=== PATIENT | male | born 1945 | race Caucasian/White ===

== ENCOUNTER 2017-01-12 14:47 | Observation (INO) | payer OTHER ==
[~2017-01-12] VITALS: Ht 177.8 cm; Wt 66.0 kg
[2017-01-12 15:12] VITALS: BP 140/81; PULSE 64; RESP 24; TEMP 98.3; O2SAT 99
[2017-01-12] MEDS ORDERED: NITROGLYCERIN 0.4 MG SL 25 TABS/BTL SL ONE (15:15)
[2017-01-12] MEDS ORDERED: MORPHINE SULFATE 4 MG/ML INJ IV PUSH ONE (15:15)
[2017-01-12] MEDS ORDERED: SODIUM CHLORIDE 0.9% FLUSH 10 ML FLUSH IVF PRN (15:15)
[2017-01-12] MEDS ORDERED: ONDANSETRON HCL 4 MG/2 ML VIAL IV PUSH ONE (15:15)
[2017-01-12] MEDS ORDERED: GABA600T PO (15:30)
[2017-01-12] MEDS ORDERED: RANI150T PO (15:30)
[2017-01-12] MEDS ORDERED: TRAZ100T10 PO (15:30)
[2017-01-12] MEDS ORDERED: PROC10TA PO (15:30)
[2017-01-12] MEDS ORDERED: SILD20TA11 PO (15:30)
[2017-01-12] MEDS ORDERED: MAGICADU2 SWISH-SWAL (15:30)
[2017-01-12] MEDS ORDERED: ONDA8TAB7 PO (15:30)
[2017-01-12] MEDS ORDERED: METO25TA3 PO (15:30)
[2017-01-12] MEDS ORDERED: TAMS0.4C4 PO (15:30)
[2017-01-12] MEDS ORDERED: SODI0.9A EACH NARE (15:30)
[2017-01-12] MEDS ORDERED: SPIRCAP INH (15:30)
[2017-01-12] MEDS ORDERED: LEVO200T4 PO (15:30)
[2017-01-12] MEDS ORDERED: SERT-129 PO (15:30)
[2017-01-12 15:49] LABS: AUTOMATED NEUTROPHIL # 8.9 TH/MM3 (1.8-7.7); BASOPHIL % 0.2 % (0.0-2.0); EOSINOPHIL # 0.2 TH/MM3 (0-0.4); EOSINOPHIL % 1.6 % (0.0-4.0); HEMATOCRIT 40.2 % (39.0-51.0); HEMO FLAGS DIFF FINAL; LYMPH % 5.7 % (9.0-44.0); LYMPHOCYTE # 0.6 TH/MM3 (1.0-4.8); MEAN CELL VOLUME 96.8 FL (80.0-100.0); MEAN CORPUSCULAR HEMOGLOBIN 32.7 PG (27.0-34.0); MEAN CORPUSCULAR HGB CONC 33.8 % (32.0-36.0); MONO % 5.4 % (0.0-8.0); NEUT % 87.1 % (16.0-70.0); PLATELET COUNT 178 TH/MM3 (150-450); RED BLOOD COUNT 4.15 MIL/MM3 (4.50-5.90); RED CELL DISTRIBUTION WIDTH 14.4 % (11.6-17.2); WHITE BLOOD COUNT 10.3 TH/MM3 (4.0-11.0)
[2017-01-12 15:50] VITALS: BP 118/66; PULSE 66; RESP 20; O2SAT 95
[2017-01-12 15:57] LABS: APTT (PATIENT) 26.4 SEC (24.3-30.1); PROTHROMBIN TIME - PATIENT 11.4 SEC (9.8-11.6)
[2017-01-12 16:02] LABS: ALT (GPT) 21 U/L (12-78); ANION GAP 7 MEQ/L (5-15); AST (GOT) 20 U/L (15-37); BICARBONATE 27.9 MEQ/L (21.0-32.0); BLOOD UREA NITROGEN 25 MG/DL (7-18); CHLORIDE 100 MEQ/L (98-107); GLOMERULAR FILTRATION RATE 70 ML/MIN (>89); MAGNESIUM 1.8 MG/DL (1.5-2.5); POTASSIUM 4.1 MEQ/L (3.5-5.1); SODIUM (NA) 135 MEQ/L (136-145)
[2017-01-12 16:06] LABS: ALKALINE PHOSPHATASE 109 U/L (45-117); TOTAL BILIRUBIN ADULT 0.5 MG/DL (0.2-1.0)
[2017-01-12 16:11] LABS: CREATINE KINASE 72 U/L (39-308)
--- NOTE | 2017-01-12 16:20 | PD ---
HPI Chief Complaint: Chest Pain Time Seen by Provider: 15:04 Travel History International Travel<30 days: No Contact w/Intl Traveler<30days: No Traveled to known affect area: No History of Present Illness HPI 71-year-old male that presents to the ED for evaluation of chest pain. Patient was seen at the OR for the chest pain and he was told to come here. Per patient in due thousand 11 he had an TN and had the same symptoms. Per patient the chest pain is not really painful but more like indigestion sensation. Per patient he goes to his throat. The patient is exactly the same as before. He has a history of lung cancer as well as ACS. High cholesterol and hypertension. He continues to smoke. He apparently cancer free. [place] through [place]. He denies any fevers chills or sweats. No trauma to the chest. Chest pain started 4 hours ago. Denies any headache or head injury. No numbness, tilling, weakness. No radiation of the pain. No back pain. No abdominal discomfort. No urinary or bowel movement issues. Pain per patient is 7 out of 10. He was given aspirin and nitroglycerin by ambulance with minimal results. 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) Cardiac Catheterization: Yes Cardiovascular Problems: Yes (TN with stent-CIRCUMFLEX OF THE LCA,) COPD: Yes Gastrointestinal Disorders: Yes (COLONIC POLYPS/BARRETTS ESOPHAGUS) Genitourinary: Yes (BPH W/O OBSTRUCTION) Hypertension: Yes Medical other: Yes (RESTLESS LEGS ) Respiratory: Yes (lung ca) Myocardial Infarction: Yes Thyroid Disease: Yes Past Surgical History Appendectomy: Yes Coronary Stent: Yes Social History Alcohol Use: Yes Tobacco Use: Yes Substance Use: Yes Allergies-Medications (Allergen,Severity, Reaction): Coded Allergies: No Known Allergies (Unverified , 01/12/17) Reported Meds & Prescriptions Reported Meds & Active Scripts Active Reported Sildenafil 20 Mg Tab 100 Mg PO HS Tamsulosin (Tamsulosin HCl) 0.4 Mg Cap 0.4 Mg PO HS Sertraline (Sertraline HCl) 100 Mg Tab 200 Mg PO DAILY Metoprolol Tartrate 25 Mg Tab 12.5 Mg PO Q12HR Prochlorperazine Maleate 10 Mg Tab 10 Mg PO Q6H PRN Ondansetron (Ondansetron HCl) 8 Mg Tab 8 Mg PO Q8HR Spiriva Handihaler (Tiotropium Inh) 18 Mcg Cap 18 Mcg INH DAILY 1 capsule = 18 mcg Nasal Mist Inh (Sodium Chloride) 0.9 % Aer 1 [place] EACH NARE BID PRN Magic Mouthwash Adult Liq (Multi-Ingredient Mouthwash/Gargle) 120 Ml Susp 10 Ml SWISH-SWAL ACHS Each 5mL contains: Nystatin 200,000units, Diphenhydramine 4.25mg, Viscous Lidocaine 10mg, Barakat syrup 0.8 mL Levothyroxine (Levothyroxine Sodium) 200 Mcg Tab 200 Mcg PO DAILY Ranitidine (Ranitidine HCl) 150 Mg Tab 150 Mg PO BID Trazodone (Trazodone HCl) 100 Mg Tablet 100 Mg PO HS Gabapentin 600 Mg Tab 600 Mg PO BID Review of Systems Except as stated in HPI: all other systems reviewed are Neg Physical Exam Narrative GENERAL: SKIN: Warm and dry. HEAD: Atraumatic. Normocephalic. EYES: Pupils equal and round. No scleral icterus. No injection or drainage. ENT: No nasal bleeding or discharge. Mucous membranes pink and moist. Tongue is midline. No uvula deviation. NECK: Trachea midline. No JVD. CARDIOVASCULAR: Regular rate and rhythm. No murmurs, S3, S4. Patient has a chronic sternal deformity. RESPIRATORY: No accessory muscle use. Clear to auscultation. Breath sounds equal bilaterally. GASTROINTESTINAL: Abdomen soft, non-tender, nondistended. Hepatic and splenic margins not palpable. MUSCULOSKELETAL: Extremities without clubbing, cyanosis, or edema. No obvious deformities. Full range of motion of the upper and lower extremities bilaterally. 2+ pulses bilaterally. NEUROLOGICAL: Awake and alert. No obvious cranial nerve deficits. Motor grossly within normal limits. Five out of 5 muscle strength in the arms and legs. Normal speech. PSYCHIATRIC: Appropriate mood and affect; insight and judgment normal. Data Data Last Documented VS Vital Signs Date Time Temp Pulse Resp B/P (MAP) Pulse Ox O2 Delivery O2 Flow Rate FiO2 01/12/17 16:13 98 Room Air 01/12/17 15:50 66 20 118/66 (83) 01/12/17 15:12 98.3 Orders Orders Electrocardiogram (01/12/17 15:12) Ckmb (Isoenzyme) Profile (01/12/17 15:12) Complete Blood Count With Diff (01/12/17 15:12) Comprehensive Metabolic Panel (01/12/17 15:12) D-Dimer (01/12/17 15:12) Magnesium (Mg) (01/12/17 15:12) Prothrombin Time / Inr (Pt) (01/12/17 15:12) Act Partial Throm Time (Ptt) (01/12/17 15:12) Troponin I (01/12/17 15:12) Lipase (01/12/17 15:12) Chest, Single Ap (01/12/17 15:12) Ecg Monitoring (01/12/17 15:12) Bilateral Bp Monitoring (01/12/17 15:12) Iv Access Insert/Monitor (01/12/17 15:12) Oximetry (01/12/17 15:12) Oxygen Administration (01/12/17 15:12) Sodium Chloride 0.9% Flush (Ns Flush) (01/12/17 15:15) Nitroglycerin Sl (Nitrostat Sl) (01/12/17 15:15) Morphine Inj (Morphine Inj) (01/12/17 15:15) Ondansetron Inj (Zofran Inj) (01/12/17 15:15) Labs Laboratory Tests Test 01/12/17 15:33 White Blood Count 10.3 TH/MM3 Red Blood Count 4.15 MIL/MM3 Hemoglobin 13.6 GM/DL Hematocrit 40.2 % Mean Corpuscular Volume 96.8 FL Mean Corpuscular Hemoglobin 32.7 PG Mean Corpuscular Hemoglobin Concent 33.8 % Red Cell Distribution Width 14.4 % Platelet Count 178 TH/MM3 Mean Platelet Volume 7.6 FL Neutrophils (%) (Auto) 87.1 % Lymphocytes (%) (Auto) 5.7 % Monocytes (%) (Auto) 5.4 % Eosinophils (%) (Auto) 1.6 % Basophils (%) (Auto) 0.2 % Neutrophils # (Auto) 8.9 TH/MM3 Lymphocytes # (Auto) 0.6 TH/MM3 Monocytes # (Auto) 0.6 TH/MM3 Eosinophils # (Auto) 0.2 TH/MM3 Basophils # (Auto) 0.0 TH/MM3 CBC Comment DIFF FINAL Differential Comment Prothrombin Time 11.4 SEC Prothromb Time International Ratio 1.0 RATIO Activated Partial Thromboplast Time 26.4 SEC D-Dimer Quantitative (PE/DVT) 0.35 MG/L FEU Blood Urea Nitrogen 25 MG/DL Creatinine 1.04 MG/DL Random Glucose 97 MG/DL Total Protein 6.8 GM/DL Albumin 3.7 GM/DL Calcium Level 9.2 MG/DL Magnesium Level 1.8 MG/DL Alkaline Phosphatase 109 U/L Aspartate Amino Transf (AST/SGOT) 20 U/L Alanine Aminotransferase (ALT/SGPT) 21 U/L Total Bilirubin 0.5 MG/DL Sodium Level 135 MEQ/L Potassium Level 4.1 MEQ/L Chloride Level 100 MEQ/L Carbon Dioxide Level 27.9 MEQ/L Anion Gap 7 MEQ/L Estimat Glomerular Filtration Rate 70 ML/MIN Total Creatine Kinase 72 U/L Troponin I LESS THAN 0.02 NG/ML Lipase 139 U/L MDM Medical Decision Making Medical Screen Exam Complete: Yes Emergency Medical Condition: Yes Medical Record Reviewed: Yes Interpretation(s) CBC & BMP Diagram 01/12/17 15:33 Total Protein 6.8, Albumin 3.7, Calcium Level 9.2, Magnesium Level 1.8, Alkaline Phosphatase 109, Aspartate Amino Transf (AST/SGOT) 20, Alanine Aminotransferase (ALT/SGPT) 21, Total Bilirubin 0.5 D-dimer negative. EKG shows sinus rhythm with no sign of ischemia or arrhythmia read by me and attending. Troponin and CK-MB negative. CXR shows abnormalities, consider CT scan per radiologist. Differential Diagnosis Chest pain versus atypical chest pain versus ACS versus PE versus NSTEMI Narrative Course 71-year-old male that presents to the ED for evaluation of chest pain. Patient was properly examined and was found to have signs and symptoms concerning for ACS. Labs and imaging were done. Labs and imaging were essentially negative at this time. He was given nitroglycerin with some relief. Patient was given aspirin. Patient does have risk factors for ACS including smoking, previous her history as well as hypertension and high cholesterol. Chest x-ray did show what appears to be abnormality and possible mass. CT was recommended and CT was done. CT did show what appears to be possible masses with possible lymphadenopathy. This was discussed with my attending who recommends the patient still be admitted to chest pain center for chest pain rule out. Because of this a do recommend admission for the chest pain center. 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 Case discussed with my attending Dr Ashraf who agrees to admission. This was discussed with patient and family who agree with this. Patient admitted to chest pain center by me. Dr Deshpande declined admission and thus [facility] Dr spangler was called who agreed to admission for chest pain r/o. Procedures EKG Prior to Arrival: Yes Diagnosis Primary Impression: Chest pain in adult Additional Impression: Lung mass Admitting Information Admitting Physician Requests: Observation Charles Rosa Jan 12, 2017 16:20
--- NOTE | 2017-01-12 16:21 | RADRPT ---
EXAM DATE/TIME: 01/12/2017 15:48 [facility] COMPARISON: No previous studies available for comparison. INDICATIONS : Mid chest pain today. MEDICAL HISTORY : Carcinoma, lung. Radiation. COPD. SURGICAL HISTORY : Coronary artery stent. ENCOUNTER: Initial ACUITY: 1 day PAIN SCORE: 7/10 LOCATION: Bilateral chest FINDINGS: Portable AP view of the chest demonstrates a normal-sized cardiac silhouette with calcification of th e aorta. There is abnormal asymmetric opacity at the right lung apex and medial right upper lobe. A p ortion appears to have air bronchograms. No pleural effusion or pneumothorax is identified. The bones and soft tissues demonstrate no acute finding. CONCLUSION: Abnormal airspace opacity/consolidation the right upper lobe and asymmetric right apical opacity. 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 Cameron Haq MD on January 12, 2017 at 16:18 Board Certified Radiologist. This report was verified electronically.
[2017-01-12] MEDS ORDERED: IOHEXOL 350 MG/ML 10 ML VIAL (for RAD DIAG) IVCONTRAST ONE (16:24)
[2017-01-12 16:32] VITALS: BP 107/61; PULSE 76; RESP 20; O2SAT 98
--- NOTE | 2017-01-12 17:18 | RADRPT ---
EXAM DATE/TIME: 01/12/2017 16:39 [facility] COMPARISON: No previous studies available for comparison. INDICATIONS : Bilateral chest pains, mass. IV CONTRAST: 80 cc Omnipaque 350 (iohexol) IV RADIATION DOSE: 5.10 CTDIvol (mGy) MEDICAL HISTORY : Cardiovascular disease. Carcinoma, lung. SURGICAL HISTORY : Appendectomy. ENCOUNTER: Initial ACUITY: 1 day PAIN SCALE: 4/10 LOCATION: Bilateral chest TECHNIQUE: Volumetric scanning of the chest was performed. Using automated exposure control and adjustment of t he mA and/or kV according to patient size, radiation dose was kept as low as reasonably achievable to obtain optimal diagnostic quality images. DICOM format image data is available electronically for review and comparison. Follow-up recommendations for detected pulmonary nodules are based at a minimum on nodule size and pa tient risk factors according to Fleischner Society Guidelines. FINDINGS: LUNGS: Wedge shaped airspace consolidation in the posterior right upper lobe and superior segment of the rig ht lower lobe with adjacent linear opacities are extending to the region of soft tissue fullness in t he right hilum. Right hilar soft tissue measures approximately 3.0 x 2.1 cm. Small subpleural nodule measuring 8 mm in the posterior right lower lobe. Peripheral subpleural airspace disease slightly mor e laterally and anteriorly in the right lower lobe. Mild bilateral opacities in the left lung base. 6 mm groundglass nodule in the left upper lobe. Additional more ill-defined focal groundglass peripher al subpleural nodular opacities in the left upper lobe measuring less than 4 mm. Right apical scarrin g. PLEURA: There is no pleural thickening or pleural effusion. MEDIASTINUM: Coronary artery calcifications. Heart is otherwise unremarkable without significant pericardial effus ion. Central pulmonary arteries are patent. AXILLAE: Within normal limits. No lymphadenopathy. SKELETAL: Gen. spondylosis of the thoracic spine. No definite abnormal lytic or blastic bony lesions. MISCELLANEOUS: The visualized upper abdominal organs demonstrate no acute abnormality. CONCLUSION: 1. No definitive CT findings to explain patient's acute chest pain. 2. Right hilar soft tissue mass measuring 3.0 x 2.1 cm with apparent posttreatment changes in the rig ht lung. 3. Multiple scattered pulmonary nodules, primarily in the left upper lobe measuring up to 6 mm. Findi ngs are concerning for possible metastatic disease. Comparisons with prior examinations would be bene ficial in further evaluation. Alternatively, followup examination may be performed in 3 months to doc ument stability. 4. Coronary artery calcifications. 5. Central pulmonary arteries are patent. Chun Velasquez MD on January 12, 2017 at 17:08 Board Certified Radiologist. This report was verified electronically.
[2017-01-12] MEDS ORDERED: ONDANSETRON HCL 4 MG/2 ML VIAL IV PUSH PRN (17:30)
[2017-01-12] MEDS ORDERED: MORPHINE SULFATE 4 MG/ML INJ IV PUSH PRN (17:30)
[2017-01-12] MEDS ORDERED: SODIUM CHLORIDE 0.9% FLUSH 10 ML FLUSH IV FLUSH PRN ×2 (17:30→20:30)
[2017-01-12] MEDS ORDERED: ACETAMINOPHEN 500 MG CPLT PO PRN (17:30)
[2017-01-12] MEDS ORDERED: ACETAMINOPHEN/HYDROcodone 325 MG/7.5 MG TAB PO PRN (17:30)
--- NOTE | 2017-01-12 19:36 | EKG ---
Date Performed: 01/12/2017 Time Performed: 15:57:24 PTAGE: 71 years EKG: Sinus rhythm NORMAL ECG NO PREVIOUS TRACING DOCTOR: Antonio Weldon Interpretating Date/Time 01/12/2017 19:34:35
[2017-01-12 20:04] LABS: CREATINE KINASE 62 U/L (39-308)
[2017-01-12] MEDS ORDERED: NALOXONE HCL 0.4 MG/ML AMP IV PUSH PRN (20:30)
--- NOTE | 2017-01-12 20:35 | EKG ---
Date Performed: 01/12/2017 Time Performed: 18:47:54 PTAGE: 71 years EKG: Sinus rhythm WITH SHORT NM INTERVAL WITH OCCASIONAL VENTRICULAR PREMATURE COMPLEXES BORDERLINE ECG Compared to pr ior electrocardiogram, Premature ventricular contractions are now present PREVIOUS TRACING : 01/12/2017 15.57 DOCTOR: Antonio Weldon Interpretating Date/Time 01/12/2017 20:33:37
[2017-01-12 20:55] VITALS: BP 132/69; PULSE 75; RESP 19; TEMP 98; O2SAT 95
[2017-01-12] MEDS ORDERED: SODIUM CHLORIDE 0.9% FLUSH 10 ML FLUSH IV FLUSH SCH (21:00)
[2017-01-12] MEDS: SODIUM CHLORIDE 0.9% FLUSH 10 ML FLUSH IV FLUSH SCH (21:00)
[2017-01-12 22:39] VITALS: BP 114/63; PULSE 81; RESP 18; TEMP 98.2; O2SAT 94
[2017-01-13] VITALS (11 sets, daily range): BP systolic 109–140; BP diastolic 63–68; PULSE 60–71; RESP 18; TEMP 98–98.3; O2SAT 93–96
[2017-01-13 01:14] LABS: CREATINE KINASE 61 U/L (39-308)
--- NOTE | 2017-01-13 01:42 | HHI.HP ---
[facility] Admission Diagnosis chest pain, r/o ACS Diagnoses: Chief Complaint: chest pain Travel History International Travel<30 Days: No Contact w/Intl Traveler <30 Da: No Traveled to Known Affected Are: No History of Present Illness Written by EMEKA Rose acting as scribe for [Marline] on 01/13/17 at 01: 35. 71 y/o male with a history of lung cancer (last chemo 6 months ago), hypothyroid , depression,and COPD presented to the ED with complaints of chest pain. Patient states the chest pain began yesterday morning while he was sitting down sorting his medications. He states it is mid sternal chest pain that radiated up to neck, he states it felt like indigestion and it felt similar to his [place] in 2000. Denies any nausea or diaphoresis. He states he did have Diarrhea for 2 weeks that ended about a 1 week ago, and he has had darker brown stools more than normal, denies any red colored or black stools. 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 Oncologist is in [place] Review of Systems Except as stated in HPI: all other systems reviewed are Neg Past Family Social History Past Medical History [place] 2000 with stent placement Lung cancer with chemo and radiation, last chemo 6 months ago Hypothyroid COPD Depression Past Surgical History 2000 and 2014 cardiac stent placement Reported Medications Reported Meds & Active Scripts Active Reported Sildenafil 20 Mg Tab 100 Mg PO HS Tamsulosin (Tamsulosin HCl) 0.4 Mg Cap 0.4 Mg PO HS Sertraline (Sertraline HCl) 100 Mg Tab 200 Mg PO DAILY Metoprolol Tartrate 25 Mg Tab 12.5 Mg PO Q12HR Prochlorperazine Maleate 10 Mg Tab 10 Mg PO Q6H PRN Ondansetron (Ondansetron HCl) 8 Mg Tab 8 Mg PO Q8HR Spiriva Handihaler (Tiotropium Inh) 18 Mcg Cap 18 Mcg INH DAILY 1 capsule = 18 mcg Nasal Mist Inh (Sodium Chloride) 0.9 % Aer 1 [place] EACH NARE BID PRN Magic Mouthwash Adult Liq (Multi-Ingredient Mouthwash/Gargle) 120 Ml Susp 10 Ml SWISH-SWAL ACHS Each 5mL contains: Nystatin 200,000units, Diphenhydramine 4.25mg, Viscous Lidocaine 10mg, Barakat syrup 0.8 mL Levothyroxine (Levothyroxine Sodium) 200 Mcg Tab 200 Mcg PO DAILY Ranitidine (Ranitidine HCl) 150 Mg Tab 150 Mg PO BID Trazodone (Trazodone HCl) 100 Mg Tablet 100 Mg PO HS Gabapentin 600 Mg Tab 600 Mg PO BID Allergies: Coded Allergies: No Known Allergies (Unverified , 01/12/17) Active Ordered Medications Current Medications Medications (Trade) Dose Ordered Sig/Brayan Route Start Time Stop Time Status Last Admin (Tylenol) 500 mg Q4H PRN PO 01/12/17 17:30 (Cascade 7.5-325 Mg) 1 tab Q4H PRN PO 01/12/17 17:30 (Morphine Inj) 2 mg Q4H PRN IV PUSH 01/12/17 17:30 (Zofran Inj) 4 mg Q6H PRN IV PUSH 01/12/17 17:30 (NS Flush) 2 ml UNSCH PRN IV FLUSH 01/12/17 20:30 (NS Flush) 2 ml BID IV FLUSH 01/12/17 21:00 (Narcan Inj) 0.4 mg UNSCH PRN IV PUSH 01/12/17 20:30 Family History Mom and Dad: Heart disease Social History Tobacco use: 1/2 PPD for 60 years Alcohol use: Socially Illicit drug use: Denies Lives with his girlfriend and is still driving Physical Exam Vital Signs Vital Signs Date Time Temp Pulse Resp B/P (MAP) Pulse Ox O2 Delivery O2 Flow Rate FiO2 01/12/17 22:39 98.2 81 18 114/63 (80) 94 01/12/17 20:55 98.0 75 19 132/69 (90) 95 01/12/17 16:32 76 20 107/61 (76) 98 Room Air 01/12/17 16:13 98 Room Air 01/12/17 15:50 66 20 118/66 (83) 95 Room Air 01/12/17 15:12 98.3 64 24 140/81 (100) 99 Room Air Physical Exam GENERAL: This is a well-nourished, well-developed patient, in no apparent distress. SKIN: No rashes, ecchymoses or lesions. Cool and dry. HEAD: Atraumatic. Normocephalic. EYES: Pupils equal round and reactive. ENT: Nose without bleeding, purulent drainage or septal hematoma. Airway patent. NECK: Trachea midline. No JVD or lymphadenopathy. CARDIOVASCULAR: Regular rate and rhythm without murmurs, gallops, or rubs. RESPIRATORY: Clear to auscultation. Breath sounds equal bilaterally. No wheezes , rales, or rhonchi. GASTROINTESTINAL: Abdomen soft, non-tender, nondistended. MUSCULOSKELETAL: Extremities without clubbing, cyanosis, or edema.No calf tenderness. NEUROLOGICAL: Awake and alert. Motor and sensory grossly within normal limits. Normal speech. Laboratory Laboratory Tests Test 01/12/17 15:33 01/12/17 18:50 01/13/17 00:42 White Blood Count 10.3 Red Blood Count 4.15 Hemoglobin 13.6 Hematocrit 40.2 Mean Corpuscular Volume 96.8 Mean Corpuscular Hemoglobin 32.7 Mean Corpuscular Hemoglobin Concent 33.8 Red Cell Distribution Width 14.4 Platelet Count 178 Mean Platelet Volume 7.6 Neutrophils (%) (Auto) 87.1 Lymphocytes (%) (Auto) 5.7 Monocytes (%) (Auto) 5.4 Eosinophils (%) (Auto) 1.6 Basophils (%) (Auto) 0.2 Neutrophils # (Auto) 8.9 Lymphocytes # (Auto) 0.6 Monocytes # (Auto) 0.6 Eosinophils # (Auto) 0.2 Basophils # (Auto) 0.0 CBC Comment DIFF FINAL Differential Comment Prothrombin Time 11.4 Prothromb Time International Ratio 1.0 Activated Partial Thromboplast Time 26.4 D-Dimer Quantitative (PE/DVT) 0.35 Blood Urea Nitrogen 25 Creatinine 1.04 Random Glucose 97 Total Protein 6.8 Albumin 3.7 Calcium Level 9.2 Magnesium Level 1.8 Alkaline Phosphatase 109 Aspartate Amino Transf (AST/SGOT) 20 Alanine Aminotransferase (ALT/SGPT) 21 Total Bilirubin 0.5 Sodium Level 135 Potassium Level 4.1 Chloride Level 100 Carbon Dioxide Level 27.9 Anion Gap 7 Estimat Glomerular Filtration Rate 70 Total Creatine Kinase 72 62 61 Troponin I LESS THAN 0.02 LESS THAN 0.02 LESS THAN 0.02 Lipase 139 Result Diagram: 01/12/17 1533 01/12/17 1533 Imaging Last Impressions Chest X-Ray 01/12/17 1512 Signed Impressions: Service Date/Time: Thursday, January 12, 2017 15:48 - CONCLUSION: Abnormal airspace opacity/consolidation the right upper lobe and asymmetric right apical opacity. Consider further evaluation with chest CT with IV contrast. Cameron Haq MD Chest CT 01/12/17 0000 Signed Impressions: Service Date/Time: Thursday, January 12, 2017 16:39 - CONCLUSION: 1. No definitive CT findings to explain patient's acute chest pain. 2. Right hilar soft tissue mass measuring 3.0 x 2.1 cm with apparent posttreatment changes in the right lung. 3. Multiple scattered pulmonary nodules, primarily in the left upper lobe measuring up to 6 mm. Findings are concerning for possible metastatic disease. Comparisons with prior examinations would be beneficial in further evaluation. Alternatively, followup examination may be performed in 3 months to document stability. 4. Coronary artery calcifications. 5. Central pulmonary arteries are patent. Chun Velasquez MD Caparnulfo VTE Risk Assessment Caprini VTE Risk Assessment: Mod/High Risk (score >= 2) Caprini Risk Assessment Model Point Value = 1 Point Value = 2 Point Value = 3 Point Value = 5 Age 41-60 Minor surgery BMI > 25 kg/m2 Swollen legs Varicose veins or History of unexplained or recurrent spontaneous Oral contraceptives or hormone replacement Sepsis (< 1 month) Serious lung disease, including pneumonia (< 1 month) Abnormal pulmonary function Acute myocardial infarction Congestive heart failure (< 1 month) History of inflammatory bowel disease Medical patient at bed rest Age 61-74 Arthroscopic surgery Major open surgery (> 45 min) Laparoscopic surgery (> 45 min) Malignancy Confined to bed (> 72 hours) Immobilizing plaster cast Central venous access Age >= 75 History of VTE Family history of VTE Factor V Leiden Prothrombin [id number] Lupus anticoagulant Anticardiolipin antibodies Elevated serum homocysteine Heparin-induced thrombocytopenia Other congenital or acquired thrombophilia Stroke (< 1 month) Elective arthroplasty Hip, pelvis, or leg fracture Acute spinal cord injury (< 1 month) Prophylaxis Regimen Total Risk Factor Score Risk Level Prophylaxis Regimen 0-1 Low Early ambulation 2 Moderate Order ONE of the following: *Sequential Compression Device (SCD) *Heparin 5000 units SQ BID 3-4 Higher Order ONE of the following medications: *Heparin 5000 units SQ TID *Enoxaparin/Lovenox 40 mg SQ daily (WT < 150 kg, CrCl > 30 mL/min) *Enoxaparin/Lovenox 30 mg SQ daily (WT < 150 kg, CrCl > 10-29 mL/min) *Enoxaparin/Lovenox 30 mg SQ BID (WT < 150 kg, CrCl > 30 mL/min) AND/OR *Sequential Compression Device (SCD) 5 or more Highest Order ONE of the following medications: *Heparin 5000 units SQ TID (Preferred with Epidurals) *Enoxaparin/Lovenox 40 mg SQ daily (WT < 150 kg, CrCl > 30 mL/min) *Enoxaparin/Lovenox 30 mg SQ daily (WT < 150 kg, CrCl > 10-29 mL/min) *Enoxaparin/Lovenox 30 mg SQ BID (WT < 150 kg, CrCl > 30 mL/min) AND *Sequential Compression Device (SCD) Assessment and Plan Problem List: (1) Chest pain in adult ICD Code: R07.9 - Chest pain, unspecified Status: Acute (2) Lung mass ICD Code: R91.8 - Other nonspecific abnormal finding of lung field Status: Acute Assessment and Plan 71 y/o male with a history of lung cancer (last chemo 6 months ago), hypothyroid , depression, COPD presented to the ED with complaints of chest pain. Chest pain, r/o ACS, history of stent placement in 2000 and 2014 Troponin .02 x 3 EKG reviewed and shows SR with PVCs -Consult cardiology for recommendations, Verbal order given "Consult cardiology" -Serial EKGs -Monitor telemetry Lung mass, unsure if acute or chronic CT chest reviewed and shows right hilar soft tissue mass with posttreatment changes -Request CD for patient from radiology -Patient will need to follow up with oncology outpatient Tobacco abuse, chronic -Encouraged to quit DVT prophylaxis: SCDs Discussed Condition With Patient and Daniela Pelletier Jan 13, 2017 01:42
[2017-01-13] MEDS: SODIUM CHLORIDE 0.9% FLUSH 10 ML FLUSH IV FLUSH SCH ×2 (08:00→22:35)
[2017-01-13 08:57] LABS: CREATINE KINASE 62 U/L (39-308)
[2017-01-13 10:12] LABS: BICARBONATE 29.4 MEQ/L (21.0-32.0); POTASSIUM 4.1 MEQ/L (3.5-5.1)
[2017-01-13] MEDS ORDERED: REGADENOSON INJ 0.4 MG/5 ML SYR ONE (13:25)
--- NOTE | 2017-01-13 13:53 | EKG ---
Date Performed: 01/13/2017 Time Performed: 07:56:59 PTAGE: 71 years EKG: SINUS BRADYCARDIA BORDERLINE ECG No significant change from prior electrocardiogram. PREVIOUS TRACING : 01/13/2017 01.04 DOCTOR: Antonio Weldon Interpretating Date/Time 01/13/2017 13:51:28
--- NOTE | 2017-01-13 16:26 | RADRPT ---
EXAM DATE/TIME: 01/13/2017 13:45 [place] COMPARISON: CT THORAX W CONTRAST, January 12, 2017, 16:39. INDICATIONS : Chest pain. Angina. DOSE: 25.6 mCi Tc99m Myoview at stress. 8.8 mCi Tc99m Myoview at rest. 0.4 mg Lexiscan STRESS SYMPTOMS: Shortness of breath, chest pressure. EJECTION FRACTION: 43% MEDICAL HISTORY : Hypothyroidism. Hypertension. Carcinoma, lung. SURGICAL HISTORY : Tonsillectomy. Angioplasty. ENCOUNTER: Initial ACUITY: 1 day PAIN SCALE: 0/10 LOCATION: Substernal chest TECHNIQUE: The patient underwent pharmacologic stress with infusion of prescribed dose. Continuous ECG tracing was monitored during stress. Gated SPECT imaging was performed after stress and conventional SPECT i maging was performed at rest. The examination was performed on a SPECT/CT scanner, both attenuation and non-corrected datasets were reviewed. FINDINGS: DISTRIBUTION: The maximum perfused segment at stress is in the inferolateral wall. PERFUSION STUDY: The pattern of perfusion at stress is within normal limits. No fixed or reversible perfusion defect i s identified. GATED STUDY: No focal wall motion abnormality is identified. CONCLUSION: 1. No left ventricle perfusion abnormality is identified. 2. Abnormally reduced left ventricle ejection fraction calculated at 43%. RISK CATEGORY: Intermediate (1-3% Annual Mortality Rate) Cameron Haq MD on January 13, 2017 at 16:23 Board Certified Radiologist. This report was verified electronically.
--- NOTE | 2017-01-13 17:16 | MB ---
cc: CHANTE RITCHIE MD DATE OF CONSULTATION 01/13/17 HISTORY OF PRESENT ILLNESS Mr. Cordon is a 71-year-old white male with history of lung cancer, COPD, which developed substernal chest discomfort yesterday which was radiating into the neck. It felt like indigestion, similar to his myocardial infarction in 2000. He also has had recent episodes of diarrhea. His last cardiac catheterization was in 2014. His last chemotherapy was 6 months ago. PAST MEDICAL HISTORY Positive for lung cancer, treated with chemotherapy, radiation. Last chemotherapy 6 months ago. History of myocardial infarction in 2000. Stent placement after his SC. Hypothyroidism, COPD, depression. MEDICATIONS 2. Tamsulosin. 3. Sertraline. 4. Metoprolol. 5. Prochlorperazine. 6. Zofran. 7. Spiriva nasal mist. 8. Magic Mouth Wash. 9. Levothyroxine. 10. Ranitidine. 11. Trazodone. 12. Gabapentin. ALLERGIES None. SOCIAL HISTORY The patient smokes one half pack a day. He drinks alcohol socially. FAMILY HISTORY The family history is positive for heart disease in both parents. REVIEW OF SYSTEMS The review of systems is otherwise negative. PHYSICAL EXAMINATION VITAL SIGNS: Blood pressure 140/66, pulse 60 and regular. HEENT: Negative. 2+ carotid upstrokes. No bruits. LUNGS: Clear. HEART: Regular with no murmur, gallop. ABDOMEN: Soft. No bruits. EXTREMITIES: Without edema. 2+ distal pulses. NEUROLOGIC: Grossly nonfocal. CARDIOLOGY STUDIES EKG was reviewed and showed normal sinus rhythm, normal axis and intervals, no acute changes. LABORATORY DATA Hemoglobin 13.6, potassium 4.1, creatinine 1.0. CK and troponin normal DIAGNOSIS 1. Recurrent angina. 2. Coronary artery disease, history of myocardial infarction and coronary stenting. 3. History of lung cancer. 4. COPD. 5. Smoking. DISPOSITION Mr. Cordon will be monitored on telemetry. We will obtain adenosine myocardial perfusion study to evaluate for ischemia. Will also obtain echocardiogram to evaluate his left ventricular function. Recommend continued aggressive modification of his cardiac risk factors. I will follow him for cardiology during hospitalization. Chante Ritchie MD OQ/EO /1:13 PM /5:01 PM KENDRA
[2017-01-13 17:18] LABS: AUTOMATED NEUTROPHIL # 6.2 TH/MM3 (1.8-7.7); BASOPHIL % 0.3 % (0.0-2.0); EOSINOPHIL # 0.1 TH/MM3 (0-0.4); EOSINOPHIL % 1.8 % (0.0-4.0); HEMATOCRIT 38.1 % (39.0-51.0); HEMO FLAGS DIFF FINAL; LYMPH % 8.3 % (9.0-44.0); LYMPHOCYTE # 0.6 TH/MM3 (1.0-4.8); MEAN CELL VOLUME 95.8 FL (80.0-100.0); MEAN CORPUSCULAR HEMOGLOBIN 32.8 PG (27.0-34.0); MEAN CORPUSCULAR HGB CONC 34.3 % (32.0-36.0); MONO % 7.2 % (0.0-8.0); NEUT % 82.4 % (16.0-70.0); PLATELET COUNT 173 TH/MM3 (150-450); RED BLOOD COUNT 3.98 MIL/MM3 (4.50-5.90); RED CELL DISTRIBUTION WIDTH 14.7 % (11.6-17.2); WHITE BLOOD COUNT 7.6 TH/MM3 (4.0-11.0)
--- NOTE | 2017-01-13 18:23 | EKG ---
Date Performed: 01/13/2017 Time Performed: 01:04:05 PTAGE: 71 years EKG: SINUS BRADYCARDIA BORDERLINE ECG Since PREVIOUS TRACING , no significant change noted PREVIOUS TRACIN01/12/2017 18.47 DOCTOR: Luz Kern Interpretating Date/Time 01/13/2017 18:22:50
[2017-01-13] MEDS: LISINOPRIL 5 MG TAB PO SCH (22:35)
[2017-01-13] MEDS: CARVEDILOL 3.125 MG TAB PO SCH (22:35)
[2017-01-14] VITALS (7 sets, daily range): BP systolic 126–144; BP diastolic 65–72; PULSE 56–65; RESP 18; TEMP 98–98.3; O2SAT 92–95
[2017-01-14 07:38] LABS: HDL CHOLESTEROL 44.1 MG/DL (40.0-60.0)
[2017-01-14] MEDS: LISINOPRIL 5 MG TAB PO SCH (08:35)
[2017-01-14] MEDS: CARVEDILOL 3.125 MG TAB PO SCH (08:35)
[2017-01-14] MEDS: SODIUM CHLORIDE 0.9% FLUSH 10 ML FLUSH IV FLUSH SCH (08:36)
[2017-01-14] MEDS ORDERED: CARV3.125 PO (08:59)
--- NOTE | 2017-01-14 09:00 | HHI.DCPOC ---
Discharge Care Plan Diagnosis: (1) Chest pain in adult Your Health Problems Are: Chest Pain Goals to Promote Your Health * To prevent worsening of your condition and complications * To maintain your health at the optimal level Directions to Meet Your Goals Take your medications as prescribed Follow your dietary instruction Follow activity as directed Keep your appointments as scheduled Take your immunizations and boosters as scheduled If your symptoms worsen call your PCP, if no PCP go to Urgent Care Center or Emergency Room Smoking is Dangerous to Your Health. Avoid second hand smoke Call the 24-hour hour crisis hotline for domestic abuse at Rohini Soria PA-C Jan 14, 2017 9:00 am
[2017-01-14] MEDS ORDERED: LISI-519 PO (09:45)
[2017-01-14] MEDS ORDERED: ATOR20TA15 PO (09:45)
[2017-01-14] MEDS ORDERED: PANT40TA3 PO (09:45)
[2017-01-14] MEDS ORDERED: PANTOPRAZOLE SOD 40 MG DELAYED RELEASE TAB PO SCH (10:00)
[2017-01-14] MEDS ORDERED: GABAPENTIN 300 MG CAP PO SCH (10:30)
--- NOTE | 2017-01-14 10:32 | HHI.PR ---
Objective Vitals Vital Signs Date Time Temp Pulse Resp B/P (MAP) Pulse Ox O2 Delivery O2 Flow Rate FiO2 01/14/17 08:30 92 21 01/14/17 08:00 98.0 58 18 137/70 (92) 93 01/14/17 07:12 58 01/14/17 03:58 98.3 65 18 134/65 (88) 94 01/13/17 23:38 98.3 71 18 112/68 (83) 93 01/13/17 21:00 94 21 01/13/17 20:57 98.1 69 18 121/64 (83) 94 01/13/17 18:46 96 01/13/17 16:26 66 01/13/17 16:21 98.3 63 18 109/63 (78) 96 01/13/17 11:09 98.0 60 18 140/66 (90) 96 I/O 01/13/17 01/13/17 01/13/17 01/14/17 01/14/17 01/14/17 07:00 15:00 23:00 07:00 15:00 23:00 Intake Total 100 ml 540 ml Balance 100 ml 540 ml Intake Oral 100 ml 540 ml # Voids 2 1 Result Diagram: 01/13/17 1700 01/13/17 0755 A/P Problem List: (1) Chest pain in adult ICD Code: R07.9 - Chest pain, unspecified Status: Acute (2) Lung mass ICD Code: R91.8 - Other nonspecific abnormal finding of lung field Status: Acute Loki Post MD Jan 14, 2017 10:32
[2017-01-14] MEDS ORDERED: SERTRALINE HCL 100 MG TAB PO SCH (11:00)
[2017-01-14] MEDS ORDERED: FAMOTIDINE 20 MG TAB PO SCH (11:00)
[2017-01-14] MEDS ORDERED: TIOTROPIUM BROMIDE 18 MCG INH INH SCH (11:00)
[2017-01-14] MEDS ORDERED: SODIUM CHLORIDE 0.65% NASAL SPRAY 45 ML BTL EACH NARE PRN (11:00)
[2017-01-14] MEDS ORDERED: LEVOTHYROXINE SODIUM 200 MCG TAB PO SCH (11:00)
[2017-01-14] MEDS ORDERED: NYSTAT/DIPHENHY/LIDO MOUTHWASH (Adult) 120ML SWISH-SWAL SCH (12:00)
--- NOTE | 2017-01-14 14:47 | ECHRPT ---
Indication: ANGINA CONCLUSIONS Normal left ventricular size. Mild concentric left ventricular hypertrophy. The left ventricular systolic function is moderately reduced with an estimated ejection fraction in the range of 40-45%. Mild mitral valve regurgitation. Trace aortic valve regurgitation. Aortic valve sclerosis is present. There is mild tricuspid valve regurgitation. The estimated pulmonary arterial pressure is 35.8 mmHg. BP: 140 / 66 HR: Rhythm: Sinus MEASUREMENTS (Male / Female) Normal Values Technical Quality:Technically difficult study 2D ECHO LV Diastolic Diameter PLAX 5.0 cm 4.2 - 5.9 / 3.9 - 5.3 cm LV Systolic Diameter PLAX 4.2 cm IVS Diastolic Thickness 1.1 cm 0.6 - 1.0 / 0.6 - 0.9 cm LVPW Diastolic Thickness 1.1 cm 0.6 - 1.0 / 0.6 - 0.9 cm LV Relative Wall Thickness 0.4 LVOT Diameter 2.3 cm Aortic Root Diameter 3.4 cm LA Systolic Diameter LX 2.4 cm 3.0 - 4.0 / 2.7 - 3.8 cm M-MODE AV Cusp Separation MM 1.8 cm DOPPLER AV Peak Velocity 125.0 cm/s AV Peak Gradient 6.3 mmHg AV Mean Gradient 4.0 mmHg AV Velocity Time Integral 30.5 cm LVOT Peak Velocity 43.6 cm/s LVOT Peak Gradient 0.8 mmHg LVOT Velocity Time Integral 11.1 cm AV Area Cont Eq vti 1.5 cm AV Area Cont Eq pk 1.4 cm Mitral E Point Velocity 57.3 cm/s Mitral A Point Velocity 72.6 cm/s Mitral E to A Ratio 0.8 LV E' Lateral Velocity 8.5 cm/s Mitral E to LV E' Lateral Ratio 6.8 LV E' Septal Velocity 2.9 cm/s Mitral E to LV E' Septal Ratio 19.6 TR Peak Velocity 254.0 cm/s TR Peak Gradient 25.8 mmHg Right Atrial Pressure 10.0 mmHg Pulmonary Artery Systolic Pressu 35.8 mmHg Right Ventricular Systolic Press 35.8 mmHg PV Peak Velocity 48.1 cm/s PV Peak Gradient 0.9 mmHg FINDINGS LEFT VENTRICLE Normal left ventricular size. Mild concentric left ventricular hypertrophy. The left ventricular systolic function is moderately reduced with an estimated ejection fraction in the range of 40-45%. RIGHT VENTRICLE Normal right ventricular size and systolic function. LEFT ATRIUM The left atrial size is normal. RIGHT ATRIUM The right atrial size is normal. ATRIAL SEPTUM Normal atrial septal thickness without atrial level shunting by limited color doppler interrogation. AORTA The aortic root and proximal ascending aorta are normal in size on limited imaging. MITRAL VALVE Mild mitral valve regurgitation. AORTIC VALVE Trace aortic valve regurgitation. Aortic valve sclerosis is present. TRICUSPID VALVE There is mild tricuspid valve regurgitation. The estimated pulmonary arterial pressure is 35.8 mmHg. PULMONARY VALVE No pulmonary valve regurgitation or stenosis. VESSELS The inferior vena cava is normal in size. PERICARDIUM No pericardial effusion. Gopi Longoria MD (Electronically Signed) Final Date:14 January 2017 14:45
--- NOTE | 2017-01-14 14:54 | PD.CARD.PN ---
Subjective Subjective Remarks No CP or SOB, feels much better Objective Medications Current Medications Medications (Trade) Dose Ordered Sig/Brayan Route Start Time Stop Time Status Last Admin (Tylenol) 500 mg Q4H PRN PO 01/12/17 17:30 ([place] 7.5-325 Mg) 1 tab Q4H PRN PO 01/12/17 17:30 (Morphine Inj) 2 mg Q4H PRN IV PUSH 01/12/17 17:30 (Zofran Inj) 4 mg Q6H PRN IV PUSH 01/12/17 17:30 (NS Flush) 2 ml UNSCH PRN IV FLUSH 01/12/17 20:30 (NS Flush) 2 ml BID IV FLUSH 01/12/17 21:00 01/14/17 08:36 (Narcan Inj) 0.4 mg UNSCH PRN IV PUSH 01/12/17 20:30 (Coreg) 3.125 mg BID PO 01/13/17 21:00 01/14/17 08:35 (Prinivil) 5 mg DAILY PO 01/13/17 20:45 01/14/17 08:35 (Neurontin) 600 mg BID PO 01/14/17 10:30 (Synthroid) 200 mcg DAILY@0600 PO 01/14/17 11:00 01/14/17 12:12 (Magic Mouthwash Adult Liq) 10 ml ACHS SWISH-SWAL 01/14/17 12:00 (Zoloft) 200 mg DAILY PO 01/14/17 11:00 01/14/17 11:31 (Flomax) 0.4 mg HS PO 01/14/17 21:00 (Spiriva Inh) 18 mcg DAILY INH 01/14/17 11:00 01/14/17 12:13 (Pepcid) 20 mg BID PO 01/14/17 11:00 01/14/17 12:12 ([place] A [place]) 1 spray BID PRN EACH NARE 01/14/17 11:00 (Desyrel) 100 mg HS PO 01/14/17 21:00 (Protonix) 40 mg DAILY PO 01/14/17 10:00 01/14/17 11:31 (Lipitor) 20 mg HS PO 01/14/17 21:00 Vital Signs / I&O Vital Signs Date Time Temp Pulse Resp B/P (MAP) Pulse Ox O2 Delivery O2 Flow Rate FiO2 01/14/17 11:55 98.3 56 18 144/72 (96) 95 01/14/17 08:30 92 21 01/14/17 08:00 98.0 58 18 137/70 (92) 93 01/14/17 07:12 58 01/14/17 03:58 98.3 65 18 134/65 (88) 94 01/13/17 23:38 98.3 71 18 112/68 (83) 93 01/13/17 21:00 94 21 01/13/17 20:57 98.1 69 18 121/64 (83) 94 01/13/17 18:46 96 01/13/17 16:26 66 01/13/17 16:21 98.3 63 18 109/63 (78) 96 I/O 01/13/17 01/13/17 01/13/17 01/14/17 01/14/17 01/14/17 07:00 15:00 23:00 07:00 15:00 23:00 Intake Total 100 ml 540 ml Balance 100 ml 540 ml Intake Oral 100 ml 540 ml # Voids 2 1 Physical Exam GENERAL: In NAD. SKIN: Warm and dry. HEAD: Normocephalic. EYES: No scleral icterus. No injection or drainage. NECK: Supple, trachea midline. No JVD or lymphadenopathy. CARDIOVASCULAR: Regular rate and rhythm without murmurs, gallops, or rubs. RESPIRATORY: Breath sounds equal bilaterally. No accessory muscle use. GASTROINTESTINAL: Abdomen soft, non-tender, nondistended. MUSCULOSKELETAL: No cyanosis, or edema. Laboratory Laboratory Tests Test 01/13/17 17:00 01/14/17 06:23 White Blood Count 7.6 TH/MM3 Red Blood Count 3.98 MIL/MM3 Hemoglobin 13.1 GM/DL Hematocrit 38.1 % Mean Corpuscular Volume 95.8 FL Mean Corpuscular Hemoglobin 32.8 PG Mean Corpuscular Hemoglobin Concent 34.3 % Red Cell Distribution Width 14.7 % Platelet Count 173 TH/MM3 Mean Platelet Volume 7.3 FL Neutrophils (%) (Auto) 82.4 % Lymphocytes (%) (Auto) 8.3 % Monocytes (%) (Auto) 7.2 % Eosinophils (%) (Auto) 1.8 % Basophils (%) (Auto) 0.3 % Neutrophils # (Auto) 6.2 TH/MM3 Lymphocytes # (Auto) 0.6 TH/MM3 Monocytes # (Auto) 0.5 TH/MM3 Eosinophils # (Auto) 0.1 TH/MM3 Basophils # (Auto) 0.0 TH/MM3 CBC Comment DIFF FINAL Differential Comment Triglycerides Level 79 MG/DL Cholesterol Level 160 MG/DL LDL Cholesterol 100 MG/DL HDL Cholesterol 44.1 MG/DL Cholesterol/HDL Ratio 3.62 RATIO Assessment and Plan Problem List: (1) Chest pain ICD Codes: R07.9 - Chest pain, unspecified (2) CAD (coronary artery disease) ICD Codes: I25.10 - Atherosclerotic heart disease of [place] coronary artery without angina pectoris (3) Lung cancer ICD Codes: C34.90 - Malignant neoplasm of unspecified part of unspecified bronchus or lung (4) COPD (chronic obstructive pulmonary disease) ICD Codes: J44.9 - Chronic obstructive pulmonary disease, unspecified (5) Smoking ICD Codes: F17.200 - Nicotine dependence, unspecified, uncomplicated Assessment and Plan No recurrent angina or CHF symptoms. Nuc ST with no evidence of ischemia. Echo with mild to moderate LV systolic dysfunction. Continue current program. DC home[facility] Chante Ritchie MD Jan 14, 2017 14:54
--- NOTE | 2017-01-14 16:07 | HHI.DS ---
Discharge Summary Admission Date Jan 12, 2017 at 16:23 Discharge Date: Jan 14, 2017 Admitting Diagnosis chest pain, r/o ACS (1) Chest pain in adult ICD Code: R07.9 - Chest pain, unspecified Diagnosis: Principal Status: Acute (2) Lung mass ICD Code: R91.8 - Other nonspecific abnormal finding of lung field Diagnosis: Principal Status: Acute Procedures none Brief History - From Admission Written by EMEKA Rose acting as scribe for [Marline] on 01/13/17 at 01: 35. 71 y/o male with a history of lung cancer (last chemo 6 months ago), hypothyroid , depression,and COPD presented to the ED with complaints of chest pain. Patient states the chest pain began yesterday morning while he was sitting down sorting his medications. He states it is mid sternal chest pain that radiated up to neck, he states it felt like indigestion and it felt similar to his [place] in 2000. Denies any nausea or diaphoresis. He states he did have Diarrhea for 2 weeks that ended about a 1 week ago, and he has had darker brown stools more than normal, denies any red colored or black stools. 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 Oncologist is in [place] CBC/BMP: 01/13/17 1700 01/13/17 0755 Significant Findings Laboratory Tests Test 01/12/17 15:33 01/12/17 18:50 01/13/17 00:42 01/13/17 07:55 Red Blood Count 4.15 MIL/MM3 (4.50-5.90) Neutrophils (%) (Auto) 87.1 % (16.0-70.0) Lymphocytes (%) (Auto) 5.7 % (9.0-44.0) Neutrophils # (Auto) 8.9 TH/MM3 (1.8-7.7) Lymphocytes # (Auto) 0.6 TH/MM3 (1.0-4.8) Blood Urea Nitrogen 25 MG/DL (7-18) 22 MG/DL (7-18) Sodium Level 135 MEQ/L (136-145) Estimat Glomerular Filtration Rate 70 ML/MIN (>89) 71 ML/MIN (>89) Troponin I LESS THAN 0.02 NG/ML LESS THAN 0.02 NG/ML LESS THAN 0.02 NG/ML LESS THAN 0.02 NG/ML Test 01/13/17 17:00 01/14/17 06:23 Red Blood Count 3.98 MIL/MM3 (4.50-5.90) Hematocrit 38.1 % (39.0-51.0) Neutrophils (%) (Auto) 82.4 % (16.0-70.0) Lymphocytes (%) (Auto) 8.3 % (9.0-44.0) Lymphocytes # (Auto) 0.6 TH/MM3 (1.0-4.8) LDL Cholesterol 100 MG/DL (0-99) Imaging Last Impressions Myocardial Perfusion Scan Nuc Med 01/13/17 0000 Signed Impressions: Service Date/Time: January 13:45 - CONCLUSION: 1. No left ventricle perfusion abnormality is identified. 2. Abnormally reduced left ventricle ejection fraction calculated at 43%%. RISK CATEGORY: Intermediate (1-3%% Annual Mortality Rate) Cameron Haq MD Chest X-Ray 01/12/17 1512 Signed Impressions: Service Date/Time: Thursday, January 12, 2017 15:48 - CONCLUSION: Abnormal airspace opacity/consolidation the right upper lobe and asymmetric right apical opacity. Consider further evaluation with chest CT with IV contrast. Cameron Haq MD Chest CT 01/12/17 0000 Signed Impressions: Service Date/Time: Thursday, January 12, 2017 16:39 - CONCLUSION: 1. No definitive CT findings to explain patient's acute chest pain. 2. Right hilar soft tissue mass measuring 3.0 x 2.1 cm with apparent posttreatment changes in the right lung. 3. Multiple scattered pulmonary nodules, primarily in the left upper lobe measuring up to 6 mm. Findings are concerning for possible metastatic disease. Comparisons with prior examinations would be beneficial in further evaluation. Alternatively, followup examination may be performed in 3 months to document stability. 4. Coronary artery calcifications. 5. Central pulmonary arteries are patent. Chun Velasquez MD PE at Discharge GENERAL: This is a well-nourished, well-developed patient, in no apparent distress. SKIN: No rashes, ecchymoses or lesions. Cool and dry. HEAD: Atraumatic. Normocephalic. EYES: Pupils equal round and reactive. ENT: Nose without bleeding, purulent drainage or septal hematoma. Airway patent. NECK: Trachea midline. No JVD or lymphadenopathy. CARDIOVASCULAR: Regular rate and rhythm without murmurs, gallops, or rubs. RESPIRATORY: Clear to auscultation. Breath sounds equal bilaterally. No wheezes , rales, or rhonchi. GASTROINTESTINAL: Abdomen soft, non-tender, nondistended. MUSCULOSKELETAL: Extremities without clubbing, cyanosis, or edema.No calf tenderness. NEUROLOGICAL: Awake and alert. Motor and sensory grossly within normal limits. Normal speech. Hospital Course 71 y/o male with a history of lung cancer (last chemo 6 months ago), hypothyroid , depression, COPD presented to the ED with complaints of chest pain. Chest pain, r/o ACS, history of stent placement in 2000 and 2014 Troponin .02 x 3 EKG reviewed and shows SR with PVCs -Negative stress test. Low suspicion for PE denies shortness of breath and he is not hypoxic. Symptoms suggestive of GERD. Antireflux mechanisms discussed with patient. Continue PPI Depressed systolic function. Denies shortness of breath. Continue beta domingo and GABY inhibitor. Lung mass, unsure if acute or chronic CT chest reviewed and shows right hilar soft tissue mass with posttreatment changes and nodules left lung concerning for metastasis -Request CD for patient from radiology -Patient will need to follow up with oncology outpatient. Reiterated to contact his oncologist as soon as possible Tobacco abuse, chronic -Encouraged to quit DVT prophylaxis: SCDs Pt Condition on Discharge: Stable Discharge Disposition: Discharge Home Discharge Time: > 30 minutes Discharge Instructions DIET: Follow Instructions for: Heart Healthy Diet Activities you can perform: Regular-No Restrictions Follow up Referrals: Oncology - 1 Week PCP Follow-[facility] - [facility] New Medications: Atorvastatin (Atorvastatin) 20 Mg Tab 20 MG PO HS for Cholesterol Management, #30 TAB Carvedilol (Coreg) 3.125 Mg Tab 3.125 MG PO BID for Blood Pressure Management, #60 TAB Lisinopril (Lisinopril) 5 Mg Tab 5 MG PO DAILY for Blood Pressure Management, #30 TAB Pantoprazole (Pantoprazole) 40 Mg Tab 40 MG PO DAILY for Manage Heartburn, #30 TAB Continued Medications: Gabapentin (Gabapentin) 600 Mg Tab 600 MG PO BID, TAB 0 Refills Levothyroxine (Levothyroxine) 200 Mcg Tab 200 MCG PO DAILY for Thyroid, TAB 0 Refills Ondansetron (Ondansetron) 8 Mg Tab 8 MG PO Q8HR for Nausea/Vomiting, TAB 0 Refills Prochlorperazine Maleate (Prochlorperazine Maleate) 10 Mg Tab 10 MG PO Q6H PRN for NAUSEA OR VOMITING, TAB 0 Refills Sertraline (Sertraline) 100 Mg Tab 200 MG PO DAILY, TAB 0 Refills Sildenafil (Sildenafil) 20 Mg Tab 100 MG PO HS for Pulm. arterial hypertension, #90 TAB 0 Refills Sodium Chloride Nasal Inh (Nasal Mist Inh) 0.9 % Aer 1 SPRAY EACH NARE BID PRN for NASAL CONGESTION, INHALER 0 Refills Tamsulosin (Tamsulosin) 0.4 Mg Cap 0.4 MG PO HS for Manage Prostate Problems, CAP 0 Refills Tiotropium Inh (Spiriva Handihaler) 18 Mcg Cap 18 MCG INH DAILY for COPD, CAP 0 Refills 1 capsule = 18 mcg Trazodone (Trazodone) 100 Mg Tablet 100 MG PO HS for Control Depression, TAB 0 Refills Discontinued Medications: Metoprolol Tartrate (Metoprolol Tartrate) 25 Mg Tab 12.5 MG PO Q12HR, TAB 0 Refills Ranitidine (Ranitidine) 150 Mg Tab 150 MG PO BID for Heartburn Management, TAB 0 Refills Loki Post MD Jan 14, 2017 16:07
[2017-01-14] MEDS ORDERED: traZODone HCL 100 MG TAB PO SCH (21:00)
[2017-01-14] MEDS ORDERED: ATORVASTATIN 20 MG TAB PO SCH (21:00)
[2017-01-14] MEDS ORDERED: TAMSULOSIN HCL 0.4 MG CAP PO SCH (21:00)
== END 2017-01-14 17:02 | disposition home or self-care (01) ==
LOC: NEPE 14:47 → NEDA 16:23 → NEPFCDU 19:11
PROVIDERS: ADMIT Internal Medicine; ATTEND Internal Medicine
DX: R07.9 Chest pain, unspecified (principal); R91.8 Other nonspecific abnormal finding of lung field; M54.2 Cervicalgia; R00.1 Bradycardia, unspecified; R19.5 Other fecal abnormalities; J44.9 Chronic obstructive pulmonary disease, unspecified; E03.9 Hypothyroidism, unspecified; I25.119 Atherosclerotic heart disease of native coronary artery with unspecified angina pectoris; I10 Essential (primary) hypertension; J45.909 Unspecified asthma, uncomplicated; I25.2 Old myocardial infarction; I49.3 Ventricular premature depolarization; G25.81 Restless legs syndrome; F32.9 Major depressive disorder, single episode, unspecified; F41.9 Anxiety disorder, unspecified; F43.10 Post-traumatic stress disorder, unspecified; F17.200 Nicotine dependence, unspecified, uncomplicated; Z79.899 Other long term (current) drug therapy; Z95.5 Presence of coronary angioplasty implant and graft; Z92.3 Personal history of irradiation; Z85.118 Personal history of other malignant neoplasm of bronchus and lung; Z92.21 Personal history of antineoplastic chemotherapy
CPT/HCPCS: 71010; 71260; 78452; 80048; 80053; 80061; 82550; 83690; 83735; 84484; 85025; 85379; 85610; 85730; 93005; 93017; 93306; 96374; 96375; 97161; 99285; A9502; G0378; G8987; G8988; G8989; J2270; J2405; J2785; Q9967